=== PATIENT | female | born 1995 | race Caucasian/White ===

== ENCOUNTER 2016-11-15 14:19 | Emergency (ER) | payer SELFPAY ==
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
[2016-11-15] MEDS ORDERED: Sodium Chloride 0.9% 1,000 ML IV ONE (14:47)
[2016-11-15] MEDS ORDERED: Ondansetron 4 MG/2 ML SDV IVPUSH ONE (14:47)
[2016-11-15] MEDS ORDERED: Morphine 10 MG/ML Syringe IV ONE (15:00)
[2016-11-15 15:39] LABS: CHLORIDE,CL 105 mmol/L (98-110); SODIUM,NA 140 mmol/L (136-146)
[2016-11-15] MEDS ORDERED: Iopamidol 755 MG/ML 500 ML Multipack Bottle IVPUSH STA (16:12)
--- NOTE | 2016-11-15 16:29 | CT ---
CT of the abdomen and pelvis with contrast. HISTORY: Pain TECHNIQUE: Axial CT images were obtained of the abdomen and pelvis following administration of 90 mL of Isovue-370 in the left antecubital fossa without complication. Coronal and sagittal reconstructi ons obtained. FINDINGS: The lung bases are clear, no pleural effusion. The liver, spleen, adrenal glands, and pancreas appear normal. There is possibly a trace pericholecy stic fluid, however the gallbladder is not distended nor is there wall thickening. No bulky retroper itoneal lymphadenopathy or abdominal ascites. The kidneys enhance and function symmetrically without evidence of obstructive uropathy. Mild left e xtrarenal pelvis. The large and small bowel are normal in caliber without evidence of obstruction. No focal pericoloni c inflammation or stranding. Appendix appears normal. No bulky pelvic lymphadenopathy or free pelvic fluid. The urinary bladder is normal. Uterus and ovaries appear grossly unremarkable. No suspicious osseous abnormalities identified. IMPRESSION: 1. Trace pericholecystic fluid within an otherwise unremarkable gallbladder. 2. Otherwise no acute findings demonstrated within the abdomen or pelvis.
[2016-11-15 17:38] VITALS: BP 108/65
== END 2016-11-15 17:20 | disposition home or self-care (01) ==
LOC: MW.ED 14:19
DX: K80.50 Calculus of bile duct without cholangitis or cholecystitis without obstruction (principal); Z88.8 Allergy status to other drugs, medicaments and biological substances
CPT/HCPCS: 36415; 74177; 80053; 81003; 81025; 82150; 83690; 85025; 86140; 96361; 96374; 96375; 99284; J2270; J2405; J7040; Q9967

== ENCOUNTER 2016-12-22 06:37 | Day surgery (SDC) | payer OTHER ==
[~2016-12-22 06:37] MED LIST: Lactated Ringers 1,000 ML IV SCH; Scopolamine 1.5 MG Transdermal Patch TRDERM ONE; cefOXitin 2 GM in Premix Bag 1 BAG IV ONE
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
[2016-12-22] MEDS ORDERED: Propofol 200 MG/20 ML SDV ONE (07:17)
[2016-12-22] MEDS ORDERED: HYDROmorphone 2 MG/ML Syringe ONE (07:17)
[2016-12-22] MEDS ORDERED: Ondansetron 4 MG/2 ML SDV ONE (07:17)
[2016-12-22] MEDS ORDERED: Lidocaine 2% 5 ML SDV ONE (07:17)
[2016-12-22] MEDS ORDERED: Midazolam 1 MG/ML 2 ML SDV ONE (07:17)
[2016-12-22] MEDS ORDERED: Rocuronium 10 MG/ML 10 ML Syringe ONE (07:17)
[2016-12-22] MEDS ORDERED: ceFAZolin 1 GM Vial ONE (07:18)
[2016-12-22] MEDS ORDERED: Bupivacaine 0.5% 10 ML SDV ONE (07:18)
[2016-12-22] MEDS ORDERED: Dexamethasone 4 MG/ML 5 ML MDV ONE (07:57)
[2016-12-22] MEDS ORDERED: diphenhydrAMINE 50 MG/ML SDV ONE (07:57)
[2016-12-22] MEDS ORDERED: Neostigmine Methylsulfate 1 MG/ML 5 ML Syringe ONE (08:50)
[2016-12-22] MEDS ORDERED: Acetaminophen/HYDROcodone 325-5 MG Tab PO PRN (09:06)
[2016-12-22] MEDS ORDERED: Morphine 10 MG/ML Syringe IVPUSH PRN (09:06)
[2016-12-22] MEDS ORDERED: Lactated Ringers 1,000 ML IV SCH (09:15)
--- NOTE | 2016-12-22 09:15 | PCM.OPNOTE ---
- General Post-Op/Procedure Note Date of Surgery/Procedure: 12/22/16 Operative Procedure(s): Laparoscopic cholecystectomy Pre Op Diagnosis: Chronic right upper quadrant pain. Abnormal hepatobiliary scan. Post-Op Diagnosis: Same Anesthesia Technique: General ET Tube (ASA I) Primary Surgeon: Emanuel Redd Windows Systems Engineer: Marleny Shen Condition: Good Free Text/Narrative:: Dictation [id number]. CPT CODE 61589
[2016-12-22] MEDS: fentaNYL 100 MCG/2 ML SDV IVPUSH PRN ×2 (09:39→09:45)
--- NOTE | 2016-12-22 09:51 | PCM.POSTAN ---
POST ANESTHESIA ASSESSMENT - MENTAL STATUS Mental Status: Alert - RESPIRATORY Respiratory Status: Respiratory Rate WNL, Airway Patent, O2 Saturation Stable - CARDIOVASCULAR CV Status: Pulse Rate WNL, Blood Pressure Stable - GASTROINTESTINAL GI Status: No Symptoms - PAIN Pain Score: 4 - POST OP HYDRATION Hydration Status: Adequate & Stable - OBSERVATIONS Free Text/Narrative:: no anesthesia problems
--- NOTE | 2016-12-22 11:48 | OR ---
SURGEON: Emanuel Redd M.D. DATE OF PROCEDURE: 12/22/2016 OPERATION PERFORMED: Laparoscopic cholecystectomy. CHARHOUSE WORKER: ANGELIKA Reyna student. ANESTHESIA: General endotracheal. ASA CLASSIFICATION: I. PREOPERATIVE DIAGNOSES: 1. Chronic right upper quadrant pain. 2. Abnormal hepatobiliary scan. POSTOPERATIVE DIAGNOSES: 1. Chronic right upper quadrant pain. 2. Abnormal hepatobiliary scan. ESTIMATED BLOOD LOSS: 5 mL. INTRAOPERATIVE FLUID REPLACEMENT: 1500 mL of crystalloid. DESCRIPTION OF PROCEDURE: The patient was taken to the operating room and placed on the operating table in the supine position. Time-out was called for appropriate identification of the patient and procedure. Thigh-high TEDs and sequential compression boots were placed. Following satisfactory attainment of general endotracheal anesthesia, a Grier catheter was placed in the patient's urinary bladder. The abdomen was prepped with DuraPrep solution. Sterile drapes were applied. Appropriate site for placement of the camera was identified approximately 3 cm below the umbilicus. The skin was infiltrated with 0.5% Marcaine solution. The skin incision was made and deepened into the subcutaneous tissue. Hemostasis was obtained with the use of electrocautery. The Veress needle was introduced into the peritoneal cavity. Saline drop test was positive. Carbon dioxide pneumoperitoneum was established with the relief set at 13 cm of water. Once we had a satisfactory pneumoperitoneum, 5 mm camera port were placed through the infraumbilical incision. Under camera vision 12 mm subxiphoid, 5 mm midclavicular, and 5 mm anterior axillary ports were placed. Each incision was preemptively infiltrated with 0.5% Marcaine solution. With all trocars in place, the patient was positioned with her feet down and rolled to the left. The gallbladder was grasped and adhesions were taken down. The cholecystohepatic triangle was dissected free identifying the cystic duct and cystic artery. Critical view of each structure was obtained prior to hemoclipping. Once the cystic duct and cystic artery were hemo-clipped, the gallbladder was dissected away from its bed. Once the gallbladder was completely removed, it was placed in an Endopouch. The gallbladder fossa was inspected for hemostasis. Minimal oozing was noted. The right upper quadrant was irrigated with sterile saline solution. All fluid was aspirated. Surgicel was placed into the bed of the gallbladder. The right hemidiaphragm was irrigated with 250 mL of saline with 20 mL of 0.5% Marcaine solution. That fluid was left in place. The Endopouch containing gallbladder was removed through the subxiphoid port removing that port at the same time. Under camera vision, the 5 mm midclavicular and anterior axillary ports were removed and finally the infraumbilical camera port were removed. Wounds were inspected for hemostasis and small bleeding sites were electrocoagulated. The infraumbilical and subxiphoid incisions were closed in 2 layers approximating the subcutaneous tissue with 3-0 Polysorb and the skin with subcuticular 4-0 Monocryl. The midclavicular and anterior axillary incisions were closed with subcuticular 4-0 Monocryl. All incisions were Steri-Stripped and dressed with sterile Tegaderm pads. Sponge, needle, and instrument counts were all correct. Prior to emergence from anesthesia, the Grier catheter was removed. Following emergence from anesthesia and extubation, the patient was taken to recovery room in stable condition. SPENSER YUAN /[id number]
[2016-12-22 13:51] VITALS: BP 109/68
== END 2016-12-22 12:32 | disposition home or self-care (01) ==
LOC: MW.SDS 06:37
PROVIDERS: ATTEND Surgery
DX: K81.1 Chronic cholecystitis (principal); Z88.5 Allergy status to narcotic agent; Z88.6 Allergy status to analgesic agent; Z98.890 Other specified postprocedural states
CPT/HCPCS: 47562; 81025; A9270; J1100; J1170; J1200; J2250; J2405; J3010; J7120; 00790; 88304; J0690; J2704

== ENCOUNTER 2017-01-30 10:14 | Emergency (ER) | payer OTHER ==
[2017-01-30] MEDS ORDERED: Ketorolac 30 MG/ML SDV IVPUSH ONE (10:49)
[2017-01-30] MEDS ORDERED: Sodium Chloride 0.9% 10 ML Syringe FLUSH PRN (10:49)
[2017-01-30] MEDS ORDERED: Sodium Chloride 0.9% 1,000 ML IV ONE (10:49)
[2017-01-30] MEDS ORDERED: Sodium Chloride 0.9% 2.5 ML Syringe FLUSH PRN (10:49)
[2017-01-30] MEDS ORDERED: Dicyclomine 10 MG Cap PO ONE (10:49)
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
[2017-01-30 11:40] LABS: CHLORIDE,CL 108 mmol/L (98-110); SODIUM,NA 138 mmol/L (136-146)
[2017-01-30] MEDS ORDERED: Iopamidol 755 MG/ML 500 ML Multipack Bottle IVPUSH STA (12:06)
--- NOTE | 2017-01-30 12:31 | CT ---
CT of the abdomen and pelvis with contrast. HISTORY: Pain TECHNIQUE: Axial CT images were obtained of the abdomen and pelvis following administration of 90 mL of Isovue-370 in the left antecubital fossa without complication. Coronal and sagittal reconstruction s obtained. FINDINGS: The lung bases are clear, no pleural effusion. There is a trace focal fatty infiltration near the falciform ligament, otherwise the liver is unremar kable. Cholecystectomy clips are noted. The spleen, adrenal glands, and pancreas appear normal. There is no bulky retroperitoneal lymphadenopathy or abdominal ascites. The kidneys enhance and function symmetrically without evidence of obstructive uropathy. The large and small bowel are normal in caliber without evidence of obstruction. No focal pericolonic inflammation or stranding. The appendix appears normal. No bulky pelvic lymphadenopathy or free pelv ic fluid. Small ovarian cysts/follicles are noted bilaterally. There is a trace free pelvic fluid, li shane physiologic. The urinary bladder is normal. No suspicious osseous abnormalities. IMPRESSION: 1. No acute findings identified within the abdomen or pelvis.
[2017-01-30 13:14] VITALS: BP 106/58
== END 2017-01-30 13:14 | disposition home or self-care (01) ==
LOC: MW.ED 10:14
DX: K62.5 Hemorrhage of anus and rectum (principal); Z88.5 Allergy status to narcotic agent; Z88.6 Allergy status to analgesic agent
CPT/HCPCS: 36415; 74177; 80053; 81001; 83690; 84703; 85025; 85610; 96360; 99284; A9270; J7040; Q9967; 99283